=== PATIENT | male | born 1955 | race Caucasian/White ===

== ENCOUNTER 2017-03-01 18:31 | Emergency (ER) | payer MEDICAID ==
[~2017-03-01] VITALS: Ht 175.3 cm; Wt 83.0 kg
[2017-03-01] MEDS ORDERED: HYDROCODONE/ACETAMINOPHEN 5/325MG TABLET PO ONE (23:30)
[2017-03-01 23:48] LABS: HEMATOCRIT. 31.2 % (42.0-52.0); HEMOGLOBIN. 10.3 g/dL (14.0-18.0); MEAN CORPUSCULAR HEMOGLOBIN 28.2 pg (28.0-32.0); MEAN CORPUSCULAR VOLUME 85.5 fL (80.0-94.0); PLATELET 244 x1000/uL (130-400); RED BLOOD CELL COUNT 3.65 mill/uL (4.7-6.1); RED CELL DISTRIBUTION WIDTH 14.8 % (11.6-14.6)
[2017-03-02 00:50] LABS: PLATELET ESTIMATE NORMAL
[2017-03-02] MEDS ORDERED: KETOROLAC 60MG/2ML VIAL IM ONE (04:45)
[2017-03-02 05:27] VITALS: BP 193/102
== END 2017-03-02 05:28 | disposition home or self-care (01) ==
LOC: ER 18:31
DX: M25.531 Pain in right wrist (principal); M25.532 Pain in left wrist; I12.0 Hypertensive chronic kidney disease with stage 5 chronic kidney disease or end stage renal disease; E11.22 Type 2 diabetes mellitus with diabetic chronic kidney disease; N18.6 End stage renal disease; Z99.2 Dependence on renal dialysis
CPT/HCPCS: 36415; 73110; 73130; 80048; 84550; 85025; 96372; 99285; J1885; Z7610

== ENCOUNTER 2017-04-04 09:42 | Emergency (ER) | payer MEDICARE, MEDICAID ==
[~2017-04-04] VITALS: Ht 152.4 cm; Wt 92.0 kg
[2017-04-04 09:43] VITALS: BP 138/86
== END 2017-04-04 10:42 | disposition home or self-care (01) ==
LOC: ER 10:10
DX: Z48.00 Encounter for change or removal of nonsurgical wound dressing (principal); I12.0 Hypertensive chronic kidney disease with stage 5 chronic kidney disease or end stage renal disease; E11.22 Type 2 diabetes mellitus with diabetic chronic kidney disease; N18.6 End stage renal disease; Z99.2 Dependence on renal dialysis; E78.00 Pure hypercholesterolemia, unspecified
CPT/HCPCS: 99283

== ENCOUNTER 2018-06-03 09:38 | Inpatient (IN) | payer MEDICARE, MEDICAID ==
[~2018-06-03] VITALS: Ht 182.9 cm; Wt 101.6 kg
[2018-06-03 11:48] LABS: CHLORIDE 97 mEq/L (98-107)
[2018-06-03 11:49] LABS: BASOPHILS % 0.8 % (0.0-2.0); EOSINOPHILS % 3.6 % (0.0-5.0); HEMATOCRIT. 34.3 % (42.0-52.0); LYMPHOCYTES % 16.8 % (20.0-50.0); MEAN CORPUSCULAR HEMOGLOBIN 31.4 pg (28.0-32.0); MEAN CORPUSCULAR VOLUME 90.1 fL (80.0-94.0); MEAN PLATELET VOLUME 8.5 fl (7.4-10.4); NEUTROPHILS % 70.8 % (40.0-76.0); PLATELET 254 x1000/uL (130-400); RED BLOOD CELL COUNT 3.81 mill/uL (4.7-6.1); RED CELL DISTRIBUTION WIDTH 12.8 % (11.6-14.6)
[2018-06-03 11:52] LABS: INR 1.1; PROTHROMBIN TIME 10.6 sec (9.1-11.1)
[2018-06-03] MEDS ORDERED: IOHEXOL-350 100 ML BOTTLE ONE (15:16)
[2018-06-03] MEDS ORDERED: DEXTROSE 50% WATER 50ML SYRINGE IV PRN (15:30)
[2018-06-03] MEDS ORDERED: ACETAMINOPHEN 325MG TABLET PO PRN (15:30)
[2018-06-03] MEDS ORDERED: ONDANSETRON HCL 4MG/2ML INJ IV PRN (15:30)
[2018-06-03] MEDS: CLONIDINE 0.1MG TABLET PO PRN (18:47)
[2018-06-03] MEDS: INSULIN LISPRO 100 UNITS/ML SUBCUT SCH ×2 (20:00→21:00)
[2018-06-03] MEDS ORDERED: NIFEDIPINE XL 60MG TAB PO NR (20:00)
[2018-06-03] MEDS ORDERED: LOSARTAN POTASSIUM 100 MG TABLET PO NR (20:00)
[2018-06-03] MEDS: BLOOD SUGAR DIAGNOSTIC STRIP TEST SCH ×2 (20:00→21:00)
[2018-06-03 22:00] VITALS: BP 180/98
[2018-06-03 22:20] VITALS: BP 203/106
[2018-06-03] MEDS: NIFEDIPINE XL 60MG TAB PO SCH (22:35)
[2018-06-03] MEDS ORDERED: PREDNISONE 20MG TABLET PO NR (23:00)
[2018-06-04] VITALS: BP 200/100
[2018-06-04] MEDS: VALACYCLOVIR HCL 500MG TABLET PO SCH ×2 (00:53→08:52)
[2018-06-04] MEDS: CLONIDINE 0.1MG TABLET PO PRN (00:53)
[2018-06-04 04:00] VITALS: BP 160/89
[2018-06-04] MEDS: INSULIN LISPRO 100 UNITS/ML SUBCUT SCH ×2 (06:37→13:10)
[2018-06-04] MEDS: BLOOD SUGAR DIAGNOSTIC STRIP TEST SCH ×2 (06:37→12:40)
[2018-06-04 07:21] LABS: BASOPHILS % 1.1 % (0.0-2.0); EOSINOPHILS % 4.9 % (0.0-5.0); HEMATOCRIT. 30.1 % (42.0-52.0); HEMOGLOBIN. 10.5 g/dL (14.0-18.0); LYMPHOCYTES % 21.1 % (20.0-50.0); MEAN CORPUSCULAR HEMOGLOBIN 31.3 pg (28.0-32.0); MEAN CORPUSCULAR VOLUME 89.4 fL (80.0-94.0); MEAN PLATELET VOLUME 8.3 fl (7.4-10.4); MONOCYTES % 8.7 % (2.0-8.0); NEUTROPHILS % 64.2 % (40.0-76.0); PLATELET 233 x1000/uL (130-400); RED BLOOD CELL COUNT 3.37 mill/uL (4.7-6.1); RED CELL DISTRIBUTION WIDTH 12.9 % (11.6-14.6)
[2018-06-04 08:00] VITALS: BP 184/94
[2018-06-04] MEDS: NIFEDIPINE XL 60MG TAB PO SCH (08:51)
[2018-06-04] MEDS ORDERED: LOSARTAN POTASSIUM 100 MG TABLET PO SCH (09:00)
[2018-06-04] MEDS ORDERED: ENOXAPARIN 30MG/0.3ML SYR SUBCUT SCH (09:00)
[2018-06-04] MEDS ORDERED: ASPIRIN 81MG TABLET PO SCH (09:00)
[2018-06-04 12:00] VITALS: BP 117/67
[2018-06-04] MEDS ORDERED: POLYVINYL ALCOHOL OPHTH DROPS 15ML BOTHEYE SCH (12:00)
[2018-06-04] MEDS ORDERED: PREDNISONE 20MG TABLET PO NR (12:30)
[2018-06-04] MEDS ORDERED: CLONIDINE 0.1MG TABLET PO SCH (14:00)
[2018-06-04] MEDS ORDERED: HYDRALAZINE HCL 100MG TABLET PO SCH (14:00)
[2018-06-04 16:33] VITALS: BP 125/71
[2018-06-05] MEDS ORDERED: ENOXAPARIN 40MG/0.4ML SYR SUBCUT SCH (09:00)
== END 2018-06-04 17:15 | disposition home or self-care (01) | DRG 73 ==
LOC: ER 09:38 → 7WST 12:55 → ENRESERV 19:52
PROVIDERS: ADMIT Internal Medicine; ATTEND Internal Medicine
PROC: 5A1D70Z Performance of Urinary Filtration, Intermittent, Less than 6 Hours Per Day (ICD-10-PCS; principal; 2018-06-04)
DX: G51.0 Bell's palsy (principal); N18.6 End stage renal disease; I12.0 Hypertensive chronic kidney disease with stage 5 chronic kidney disease or end stage renal disease; D63.8 Anemia in other chronic diseases classified elsewhere; E11.22 Type 2 diabetes mellitus with diabetic chronic kidney disease; E78.5 Hyperlipidemia, unspecified; E66.9 Obesity, unspecified; E78.1 Pure hyperglyceridemia; E87.8 Other disorders of electrolyte and fluid balance, not elsewhere classified; E78.00 Pure hypercholesterolemia, unspecified; Z99.2 Dependence on renal dialysis; Z68.30 Body mass index [BMI] 30.0-30.9, adult
CPT/HCPCS: 36415; 70496; 70551; 80061; 82962; 84443; 92610; 93005; 96374; 97162; 99285; J1650; J2405; J7512; Q9967

== ENCOUNTER 2018-06-05 15:15 | Emergency (ER) | payer MEDICARE, MEDICAID ==
[~2018-06-05] VITALS: Ht 182.9 cm; Wt 101.7 kg
[2018-06-05] MEDS ORDERED: SODIUM CHLORIDE 0.9% 1,000 ML IV ONE (15:55)
[2018-06-05 16:36] LABS: BASOPHILS % 0.7 % (0.0-2.0); EOSINOPHILS % 1.8 % (0.0-5.0); HEMATOCRIT. 31.6 % (42.0-52.0); HEMOGLOBIN. 11.2 g/dL (14.0-18.0); LYMPHOCYTES % 8.6 % (20.0-50.0); MEAN CORPUSCULAR HEMOGLOBIN 31.5 pg (28.0-32.0); MEAN CORPUSCULAR VOLUME 89.1 fL (80.0-94.0); MEAN PLATELET VOLUME 8.4 fl (7.4-10.4); MONOCYTES % 2.6 % (2.0-8.0); NEUTROPHILS % 86.3 % (40.0-76.0); PLATELET 254 x1000/uL (130-400); RED BLOOD CELL COUNT 3.55 mill/uL (4.7-6.1); RED CELL DISTRIBUTION WIDTH 12.9 % (11.6-14.6)
[2018-06-05 16:38] LABS: CHLORIDE 100 mEq/L (98-107)
[2018-06-05 16:42] LABS: INR 1.1; PROTHROMBIN TIME 10.6 sec (9.1-11.1)
[2018-06-05 16:48] LABS: ETHANOL BLOOD < 10 mg/dL
[2018-06-05 16:50] LABS: CREATINE KINASE 194 IU/L (39-308)
[2018-06-05 21:26] VITALS: BP 144/81
== END 2018-06-05 21:30 | disposition home or self-care (01) ==
LOC: ER 15:15 → CANBEDREQ 23:10
DX: G51.0 Bell's palsy (principal); I10 Essential (primary) hypertension; E11.9 Type 2 diabetes mellitus without complications
CPT/HCPCS: 36415; 70450; 70551; 71045; 80053; 82550; 82962; 83690; 83735; 83880; 85025; 85610; 93005; 99284; G0482; J7030

== ENCOUNTER 2018-10-12 16:35 | Inpatient (IN) | payer MEDICARE, MEDICAID ==
[~2018-10-12] VITALS: Ht 172.7 cm; Wt 101.6 kg
[2018-10-12 17:45] LABS: BASOPHILS % 0.5 % (0.0-2.0); EOSINOPHILS % 1.9 % (0.0-5.0); HEMATOCRIT. 31.9 % (42.0-52.0); HEMOGLOBIN. 11.2 g/dL (14.0-18.0); LYMPHOCYTES % 10.7 % (20.0-50.0); MEAN CORPUSCULAR HEMOGLOBIN 31.1 pg (28.0-32.0); MEAN CORPUSCULAR VOLUME 88.6 fL (80.0-94.0); MONOCYTES % 4.8 % (2.0-8.0); NEUTROPHILS % 82.1 % (40.0-76.0); PLATELET 262 x1000/uL (130-400); RED BLOOD CELL COUNT 3.59 mill/uL (4.7-6.1); RED CELL DISTRIBUTION WIDTH 13.8 % (11.6-14.6)
[2018-10-12 17:47] LABS: CHLORIDE 97 mEq/L (98-107)
[2018-10-12] MEDS ORDERED: HYDRALAZINE 20MG/ML VIAL IV ONE (18:00)
[2018-10-12 22:00] VITALS: BP 168/94
[2018-10-13] VITALS: BP 138/69
[2018-10-13] MEDS ORDERED: ACETAMINOPHEN 325MG TABLET PO PRN (00:15)
[2018-10-13 04:00] VITALS: BP 156/73
[2018-10-13] MEDS ORDERED: HYDRALAZINE HCL 50MG TABLET PO SCH ×2 (06:00→22:00)
[2018-10-13 08:00] VITALS: BP 123/58
[2018-10-13 08:11] LABS: BASOPHILS % 0.7 % (0.0-2.0); EOSINOPHILS % 1.6 % (0.0-5.0); HEMATOCRIT. 31.8 % (42.0-52.0); HEMOGLOBIN. 10.9 g/dL (14.0-18.0); LYMPHOCYTES % 13.3 % (20.0-50.0); MEAN CORPUSCULAR HEMOGLOBIN 30.5 pg (28.0-32.0); MEAN CORPUSCULAR VOLUME 89.1 fL (80.0-94.0); MEAN PLATELET VOLUME 8.4 fl (7.4-10.4); MONOCYTES % 6.2 % (2.0-8.0); NEUTROPHILS % 78.2 % (40.0-76.0); PLATELET 250 x1000/uL (130-400); RED BLOOD CELL COUNT 3.57 mill/uL (4.7-6.1); RED CELL DISTRIBUTION WIDTH 13.9 % (11.6-14.6)
[2018-10-13] MEDS ORDERED: AMLODIPINE 10MG TABLET PO SCH (09:00)
[2018-10-13] MEDS ORDERED: DEXTROSE 50% WATER 50ML SYRINGE IV PRN (10:00)
[2018-10-13 12:00] VITALS: BP 135/68
[2018-10-13] MEDS: BLOOD SUGAR DIAGNOSTIC STRIP TEST SCH ×2 (12:29→17:41)
[2018-10-13] MEDS: INSULIN LISPRO 100 UNITS/ML SUBCUT SCH ×2 (12:59→17:43)
[2018-10-13] MEDS ORDERED: MECLIZINE 25MG TABLET PO PRN (13:00)
[2018-10-13 13:25] LABS: INR 1.1; PROTHROMBIN TIME 11.1 sec (9.6-11.0)
[2018-10-13] MEDS ORDERED: HYDRALAZINE HCL 25MG TABLET PO SCH (14:00)
[2018-10-13 16:00] VITALS: BP_SYST 116; BP_SYST 136; BP_SYST 153; BP_DIAS 66; BP_DIAS 70; BP_DIAS 79
[2018-10-13 16:14] LABS: *AMPHETAMINES SCREEN URINE NEGATIVE (NEGATIVE); *BARBITURATES SCREEN URINE NEGATIVE (NEGATIVE); *BENZODIAZEPINES SCREEN URINE NEGATIVE (NEGATIVE); *COCAINE SCREEN URINE NEGATIVE (NEGATIVE); METHADONE URINE SCREEN NEGATIVE (NEGATIVE); OPIATES URINE SCREEN NEGATIVE (NEGATIVE)
[2018-10-13 16:15] LABS: CANNABINOID URINE SCREEN NEGATIVE (NEGATIVE); PHENCYCLIDINE URINE SCREEN NEGATIVE (NEGATIVE)
[2018-10-13] MEDS ORDERED: SODIUM CHLORIDE 0.9% 250 ML IV ONE (17:45)
[2018-10-13] MEDS ORDERED: LISI-604 MT (18:22)
[2018-10-13] MEDS ORDERED: CALC667C MT (18:22)
[2018-10-13] MEDS ORDERED: HYDR-4001 PO (18:22)
[2018-10-13] MEDS ORDERED: IBUP-2030 MT (18:22)
[2018-10-13] MEDS ORDERED: HYDR100T26 MT (18:22)
[2018-10-13] MEDS ORDERED: SEVE800T8 MT (18:22)
[2018-10-13] MEDS ORDERED: AMLO5TAB88 MT (18:22)
[2018-10-13 18:25] VITALS: BP 136/70
[2018-10-14] MEDS ORDERED: ENOXAPARIN 40MG/0.4ML SYR SUBCUT SCH (09:00)
== END 2018-10-13 20:18 | disposition home or self-care (01) | DRG 73 ==
LOC: ER 16:35 → 6WST 18:34 → EDBEDREQ 18:40 → ENRESERV 20:35
PROVIDERS: ADMIT Internal Medicine; ATTEND Internal Medicine
DX: G90.8 Other disorders of autonomic nervous system (principal); N18.6 End stage renal disease; I16.1 Hypertensive emergency; I12.0 Hypertensive chronic kidney disease with stage 5 chronic kidney disease or end stage renal disease; I31.3 Pericardial effusion (noninflammatory); G51.0 Bell's palsy; E11.22 Type 2 diabetes mellitus with diabetic chronic kidney disease; D64.9 Anemia, unspecified; Z79.899 Other long term (current) drug therapy; Z99.2 Dependence on renal dialysis
CPT/HCPCS: 36415; 71045; 80048; 80305; 82962; 84484; 93306; 96374; 99285; J0360; J1815

== ENCOUNTER 2020-09-02 09:28 | Emergency (ER) | payer MEDICARE, MEDICAID ==
[~2020-09-02] VITALS: Ht 162.6 cm; Wt 82.0 kg
[~2020-09-02 09:28] MED LIST: CALC667C MT; HYDR-4001 PO; HYDR100T26 MT; IBUP-2030 MT; LISI20TA31 MT; SEVE800T8 MT
[2020-09-02 10:12] LABS: BASOPHILS % 1.2 % (0.0-2.0); EOSINOPHILS % 3.5 % (0.0-5.0); HEMATOCRIT. 37.2 % (42.0-52.0); HEMOGLOBIN. 12.2 g/dL (14.0-18.0); LYMPHOCYTES % 7.7 % (20.0-50.0); MEAN CORPUSCULAR HEMOGLOBIN 30.4 pg (28.0-32.0); MEAN CORPUSCULAR VOLUME 92.4 fL (80.0-94.0); MEAN PLATELET VOLUME 8.1 fl (7.4-10.4); MONOCYTES % 13.3 % (2.0-8.0); NEUTROPHILS % 74.3 % (40.0-76.0); PLATELET 151 x1000/uL (130-400); RED BLOOD CELL COUNT 4.03 mill/uL (4.7-6.1); RED CELL DISTRIBUTION WIDTH 17.2 % (11.6-14.6)
[2020-09-02 10:18] LABS: CHLORIDE 95 mEq/L (98-107)
[2020-09-02] MEDS ORDERED: ACETAMINOPHEN 325MG TABLET PO ONE (15:45)
[2020-09-02] MEDS ORDERED: ONDANSETRON HCL 4MG/2ML INJ IV ONE (17:00)
[2020-09-02 18:12] VITALS: BP 167/89
== END 2020-09-02 18:24 | disposition short-term general hospital (02) ==
LOC: ER 09:36 → CANBEDREQ 20:42
DX: R07.89 Other chest pain (principal)
CPT/HCPCS: 36415; 71045; 80053; 82962; 83880; 84484; 85025; 93005; 96374; 99285; J2405

== ENCOUNTER 2020-11-11 14:42 | Inpatient (IN) | payer MEDICARE, MEDICAID ==
[2020-11-11] VITALS: BP 172/88
[~2020-11-11] VITALS: Ht 170.2 cm; Wt 82.1 kg
[2020-11-11] MEDS ORDERED: HYDROCODONE/ACETAMINOPHEN 5/325MG TABLET PO ONE (15:15)
[2020-11-11 17:17] LABS: HEMATOCRIT. 30.8 % (42.0-52.0); HEMOGLOBIN. 10.9 g/dL (14.0-18.0); MEAN CORPUSCULAR VOLUME 93.8 fL (80.0-94.0); MEAN PLATELET VOLUME 7.5 fl (7.4-10.4); PLATELET 218 x1000/uL (130-400); RED BLOOD CELL COUNT 3.29 mill/uL (4.7-6.1)
[2020-11-11 17:24] LABS: CHLORIDE 95 mEq/L (98-107)
[2020-11-11 17:38] LABS: PLATELET ESTIMATE NORMAL
[2020-11-11] MEDS ORDERED: CLONIDINE 0.1MG TABLET PO PRN (22:30)
[2020-11-11] MEDS ORDERED: ACETAMINOPHEN 325MG TABLET PO PRN (22:30)
[2020-11-11] MEDS ORDERED: ONDANSETRON HCL 4MG/2ML INJ IV PRN (22:30)
[2020-11-11 23:00] VITALS: BP 162/92
[2020-11-11] MEDS: MORPHINE SULFATE 2 MG/ML CPJ (NOT FOR IM USE) IV PRN (23:17)
[2020-11-12] MEDS ORDERED: DEXTROSE 50% WATER 50ML SYRINGE IV PRN ×2 (00:30)
[2020-11-12 04:00] VITALS: BP 162/76
[2020-11-12] MEDS: MORPHINE SULFATE 2 MG/ML CPJ (NOT FOR IM USE) IV PRN ×3 (04:26→14:39)
[2020-11-12 06:23] LABS: HEMATOCRIT. 30.7 % (42.0-52.0); HEMOGLOBIN. 10.7 g/dL (14.0-18.0); MEAN CORPUSCULAR HEMOGLOBIN 33.4 pg (28.0-32.0); MEAN CORPUSCULAR VOLUME 95.8 fL (80.0-94.0); MEAN PLATELET VOLUME 8.6 fl (7.4-10.4); PLATELET 194 x1000/uL (130-400); RED CELL DISTRIBUTION WIDTH 13.6 % (11.6-14.6)
[2020-11-12 06:31] LABS: CHLORIDE 94 mEq/L (98-107)
[2020-11-12 06:51] LABS: LDL CHOLESTEROL 73 mg/dL (5-100)
[2020-11-12 06:53] LABS: HDL CHOLESTEROL 24 mg/dL (40-59)
[2020-11-12] MEDS: HYDRALAZINE HCL 100MG TABLET PO SCH ×3 (06:55→21:29)
[2020-11-12] MEDS: BLOOD SUGAR DIAGNOSTIC STRIP TEST SCH ×4 (07:03→21:30)
[2020-11-12] MEDS: INSULIN LISPRO 100 UNITS/ML SUBCUT SCH ×4 (07:03→21:00)
[2020-11-12] MEDS ORDERED: BLOOD SUGAR DIAGNOSTIC STRIP TEST SCH (07:20)
[2020-11-12] MEDS ORDERED: INSULIN LISPRO 100 UNITS/ML SUBCUT SCH (07:50)
[2020-11-12 08:12] VITALS: BP 141/72
[2020-11-12] MEDS: ENOXAPARIN 30MG/0.3ML SYR SUBCUT SCH (10:00)
[2020-11-12] MEDS: FOLIC ACID/VITAMIN B COMP W-C TABLET PO SCH (10:01)
[2020-11-12] MEDS: LISINOPRIL 20MG TABLET PO SCH (10:01)
[2020-11-12] MEDS: SEVELAMER CARBONATE 800 MG TABLET PO SCH ×3 (10:05→18:19)
[2020-11-12 12:10] VITALS: BP 125/69
[2020-11-12 13:14] LABS: HEPATITIS B SURFACE ANTIGEN NEGATIVE
[2020-11-12 13:44] LABS: HEPATITIS A AB IGM NEGATIVE (NEGATIVE)
[2020-11-12 16:04] VITALS: BP 120/65
[2020-11-12 16:36] LABS: PLATELET ESTIMATE NORMAL
[2020-11-12 20:00] VITALS: BP 150/77
[2020-11-12] MEDS: HYDROCODONE/ACETAMINOPHEN 5/325MG TABLET PO PRN (21:30)
[2020-11-13] VITALS: BP 94/57
[2020-11-13 04:00] VITALS: BP_SYST 136; BP_SYST 94; BP_DIAS 48; BP_DIAS 70
[2020-11-13] MEDS: MORPHINE SULFATE 2 MG/ML CPJ (NOT FOR IM USE) IV PRN ×2 (05:00→13:09)
[2020-11-13] MEDS: HYDRALAZINE HCL 100MG TABLET PO SCH ×3 (05:04→21:07)
[2020-11-13 06:49] LABS: HEMATOCRIT. 32.5 % (42.0-52.0); HEMOGLOBIN. 10.8 g/dL (14.0-18.0); MEAN CORPUSCULAR HEMOGLOBIN 32.4 pg (28.0-32.0); MEAN CORPUSCULAR VOLUME 97.2 fL (80.0-94.0); MEAN PLATELET VOLUME 8.4 fl (7.4-10.4); PLATELET 225 x1000/uL (130-400); RED BLOOD CELL COUNT 3.34 mill/uL (4.7-6.1); RED CELL DISTRIBUTION WIDTH 13.6 % (11.6-14.6)
[2020-11-13] MEDS: BLOOD SUGAR DIAGNOSTIC STRIP TEST SCH ×4 (07:20→20:32)
[2020-11-13] MEDS: INSULIN LISPRO 100 UNITS/ML SUBCUT SCH ×4 (07:50→20:32)
[2020-11-13 08:04] VITALS: BP 118/71
[2020-11-13] MEDS: COLCHICINE 0.6MG TABLET PO SCH ×2 (09:00→09:17)
[2020-11-13] MEDS ORDERED: VANCOMYCIN 1 G PREMIX 200 ML IV SCH (09:00)
[2020-11-13] MEDS: FOLIC ACID/VITAMIN B COMP W-C TABLET PO SCH (09:16)
[2020-11-13] MEDS: SEVELAMER CARBONATE 800 MG TABLET PO SCH ×3 (09:16→17:36)
[2020-11-13] MEDS: LISINOPRIL 20MG TABLET PO SCH (09:18)
[2020-11-13] MEDS: ENOXAPARIN 30MG/0.3ML SYR SUBCUT SCH (09:19)
[2020-11-13] MEDS ORDERED: COLCHICINE 0.6MG TABLET PO SCH ×2 (10:00→13:00)
[2020-11-13] MEDS ORDERED: VANCOMYCIN 1,500 MG in DEXT 5% WATER 250 ML IV SCH (11:00)
[2020-11-13 12:07] VITALS: BP 101/59
[2020-11-13 16:06] VITALS: BP 140/80
[2020-11-13 20:00] VITALS: BP 147/74
[2020-11-13 23:22] LABS: PLATELET ESTIMATE NORMAL
[2020-11-14] VITALS (7 sets, daily range): BP systolic 112–155; BP diastolic 55–81
[2020-11-14] MEDS: MORPHINE SULFATE 2 MG/ML CPJ (NOT FOR IM USE) IV PRN ×3 (03:30→17:32)
[2020-11-14] MEDS: HYDRALAZINE HCL 100MG TABLET PO SCH ×2 (05:45→14:00)
[2020-11-14] MEDS: HYDROCODONE/ACETAMINOPHEN 5/325MG TABLET PO PRN ×3 (05:46→20:47)
[2020-11-14] MEDS: BLOOD SUGAR DIAGNOSTIC STRIP TEST SCH ×4 (06:23→20:19)
[2020-11-14 07:32] LABS: HEMATOCRIT. 31.5 % (42.0-52.0); MEAN CORPUSCULAR VOLUME 94.9 fL (80.0-94.0); MEAN PLATELET VOLUME 8.3 fl (7.4-10.4); PLATELET 235 x1000/uL (130-400); RED BLOOD CELL COUNT 3.32 mill/uL (4.7-6.1); RED CELL DISTRIBUTION WIDTH 13.7 % (11.6-14.6)
[2020-11-14] MEDS: INSULIN LISPRO 100 UNITS/ML SUBCUT SCH ×4 (07:40→20:19)
[2020-11-14] MEDS: FOLIC ACID/VITAMIN B COMP W-C TABLET PO SCH (08:31)
[2020-11-14] MEDS: ENOXAPARIN 30MG/0.3ML SYR SUBCUT SCH (08:34)
[2020-11-14] MEDS: LISINOPRIL 20MG TABLET PO SCH (08:40)
[2020-11-14] MEDS: SEVELAMER CARBONATE 800 MG TABLET PO SCH ×3 (08:40→17:32)
[2020-11-14] MEDS ORDERED: COLCHICINE 0.6MG TABLET PO SCH (09:00)
[2020-11-14 14:59] LABS: PLATELET ESTIMATE NORMAL
[2020-11-14] MEDS ORDERED: VANCOMYCIN 750 MG PREMIX 150 ML IV SCH (15:00)
== END 2020-11-14 22:00 | disposition home or self-care (01) | DRG 553 ==
LOC: ER 14:42 → 6WST 19:13 → EDBEDREQ 19:14 → ENRESERV 20:51
PROVIDERS: ADMIT Internal Medicine; ATTEND Internal Medicine
DX: M10.9 Gout, unspecified (principal); N18.6 End stage renal disease; I12.0 Hypertensive chronic kidney disease with stage 5 chronic kidney disease or end stage renal disease; M19.90 Unspecified osteoarthritis, unspecified site; E11.22 Type 2 diabetes mellitus with diabetic chronic kidney disease; D64.9 Anemia, unspecified; M54.9 Dorsalgia, unspecified; E87.70 Fluid overload, unspecified; M19.019 Primary osteoarthritis, unspecified shoulder; Z99.2 Dependence on renal dialysis
CPT/HCPCS: 36415; 71045; 73030; 73110; 73130; 73200; 80048; 80053; 80061; 80202; 82962; 83036; 83880; 84100; 84484; 84550; 85025; 85651; 86140; 86705; 86709; 86803; 87340; 93005; 93970; 93971; 99285; J1650; J2270; J2405; J3370; J7060

== ENCOUNTER 2020-11-18 09:19 | Inpatient (IN) | payer MEDICARE, MEDICAID ==
[~2020-11-18] VITALS: Ht 167.6 cm; Wt 81.4 kg
[2020-11-18 10:00] LABS: HEMATOCRIT. 34.1 % (42.0-52.0); HEMOGLOBIN. 11.6 g/dL (14.0-18.0); MEAN CORPUSCULAR HEMOGLOBIN 32.8 pg (28.0-32.0); MEAN PLATELET VOLUME 7.7 fl (7.4-10.4); PLATELET 247 x1000/uL (130-400); RED BLOOD CELL COUNT 3.55 mill/uL (4.7-6.1); RED CELL DISTRIBUTION WIDTH 13.4 % (11.6-14.6)
[2020-11-18 10:07] LABS: CHLORIDE 92 mEq/L (98-107)
[2020-11-18 10:11] LABS: ETHANOL BLOOD < 10 mg/dL
[2020-11-18 10:24] LABS: INR 1.1
[2020-11-18] MEDS ORDERED: NICARDIPINE 40MG/200ML PREMIX 200 ML IV PRN (11:15)
[2020-11-18 11:42] LABS: PLATELET ESTIMATE NORMAL
[2020-11-18 11:53] LABS: HEPATITIS B SURFACE ANTIGEN NEGATIVE
[2020-11-18 12:23] LABS: HEPATITIS A AB IGM NEGATIVE (NEGATIVE)
[2020-11-18] MEDS ORDERED: ACETAMINOPHEN 325MG TABLET PO ONE (14:15)
[2020-11-18 16:38] VITALS: BP 122/67
[2020-11-18] MEDS ORDERED: DEXTROSE 50% WATER 50ML SYRINGE IV PRN (17:45)
[2020-11-18] MEDS: HYDROCODONE/ACETAMINOPHEN 5/325MG TABLET PO PRN ×2 (18:14→22:31)
[2020-11-18 20:00] VITALS: BP 129/70
[2020-11-18] MEDS: INSULIN LISPRO 100 UNITS/ML SUBCUT SCH (21:00)
[2020-11-18] MEDS: BLOOD SUGAR DIAGNOSTIC STRIP TEST SCH (21:05)
[2020-11-19] VITALS: BP 159/80
[2020-11-19 04:00] VITALS: BP 159/82
[2020-11-19] MEDS: HYDROCODONE/ACETAMINOPHEN 5/325MG TABLET PO PRN ×3 (04:22→23:08)
[2020-11-19] MEDS: BLOOD SUGAR DIAGNOSTIC STRIP TEST SCH ×4 (06:20→21:15)
[2020-11-19] MEDS: INSULIN LISPRO 100 UNITS/ML SUBCUT SCH ×4 (06:20→21:00)
[2020-11-19 06:28] LABS: HEMATOCRIT. 32.5 % (42.0-52.0); HEMOGLOBIN. 11.1 g/dL (14.0-18.0); MEAN CORPUSCULAR HEMOGLOBIN 32.5 pg (28.0-32.0); MEAN CORPUSCULAR VOLUME 95.5 fL (80.0-94.0); MEAN PLATELET VOLUME 8.4 fl (7.4-10.4); PLATELET 246 x1000/uL (130-400); RED BLOOD CELL COUNT 3.41 mill/uL (4.7-6.1); RED CELL DISTRIBUTION WIDTH 13.5 % (11.6-14.6)
[2020-11-19 08:00] VITALS: BP 128/73
[2020-11-19 12:00] VITALS: BP 140/82
[2020-11-19 15:19] LABS: PLATELET ESTIMATE NORMAL
[2020-11-19 16:00] VITALS: BP 156/75
[2020-11-19 19:19] LABS: T4 FREE 1.11 ng/dL (0.76-1.46)
[2020-11-19 20:00] VITALS: BP 168/85
[2020-11-20] VITALS: BP_SYST 136; BP_SYST 99; BP_DIAS 61; BP_DIAS 69
[2020-11-20] MEDS: HYDROCODONE/ACETAMINOPHEN 5/325MG TABLET PO PRN ×3 (03:24→18:03)
[2020-11-20 04:00] VITALS: BP 143/85
[2020-11-20] MEDS: BLOOD SUGAR DIAGNOSTIC STRIP TEST SCH ×4 (06:16→21:10)
[2020-11-20] MEDS: INSULIN LISPRO 100 UNITS/ML SUBCUT SCH ×4 (06:17→21:16)
[2020-11-20 07:12] LABS: HEMATOCRIT. 31.9 % (42.0-52.0); MEAN PLATELET VOLUME 8.7 fl (7.4-10.4); PLATELET 231 x1000/uL (130-400); RED BLOOD CELL COUNT 3.33 mill/uL (4.7-6.1); RED CELL DISTRIBUTION WIDTH 13.5 % (11.6-14.6)
[2020-11-20 08:00] VITALS: BP 144/87
[2020-11-20 09:10] LABS: A/G RATIO 0.6 (0.7-1.7); ALBUMIN 2.4 g/dL (2.9-4.4); ALPHA-1-GLOBULIN 0.3 g/dL (0.0-0.4); ALPHA-2-GLOBULIN 0.7 g/dL (0.4-1.0); BETA GLOBULIN 0.8 g/dL (0.7-1.3); GLOBULIN TOTAL 3.7 g/dL (2.2-3.9); M-SPIKE Not Observed g/dL (Not Observed); TOTAL PROTEIN SERUM 6.1 g/dL (6.0-8.5)
[2020-11-20 12:00] VITALS: BP 160/85
[2020-11-20 13:59] LABS: PLATELET ESTIMATE NORMAL
[2020-11-20 16:00] VITALS: BP 106/68
[2020-11-20] MEDS ORDERED: COLCHICINE 0.6MG TABLET PO SCH (17:00)
[2020-11-20] MEDS ORDERED: COLCHICINE 0.6MG TABLET PO NR (17:00)
[2020-11-20] MEDS ORDERED: LACTULOSE 20G/30ML UDC PO PRN (17:30)
[2020-11-20] MEDS: MELOXICAM 7.5MG TABLET PO SCH (18:01)
[2020-11-20] MEDS: COLCHICINE 0.6MG TABLET PO SCH (18:02)
[2020-11-20 20:00] VITALS: BP 147/79
[2020-11-21] VITALS: BP 153/78
[2020-11-21 04:00] VITALS: BP 98/59
[2020-11-21] MEDS: INSULIN LISPRO 100 UNITS/ML SUBCUT SCH ×4 (06:39→21:00)
[2020-11-21] MEDS: BLOOD SUGAR DIAGNOSTIC STRIP TEST SCH ×4 (06:39→21:00)
[2020-11-21 08:00] VITALS: BP 128/73
[2020-11-21] MEDS: MELOXICAM 7.5MG TABLET PO SCH (09:06)
[2020-11-21 10:08] LABS: HEMATOCRIT. 33.4 % (42.0-52.0); HEMOGLOBIN. 11.4 g/dL (14.0-18.0); MEAN CORPUSCULAR HEMOGLOBIN 32.9 pg (28.0-32.0); MEAN CORPUSCULAR VOLUME 96.5 fL (80.0-94.0); MEAN PLATELET VOLUME 8.1 fl (7.4-10.4); PLATELET 219 x1000/uL (130-400); RED BLOOD CELL COUNT 3.46 mill/uL (4.7-6.1); RED CELL DISTRIBUTION WIDTH 13.6 % (11.6-14.6)
[2020-11-21 12:00] VITALS: BP 122/69
[2020-11-21 12:45] LABS: INR 1.1; PROTHROMBIN TIME 12.1 sec (9.6-11.0)
[2020-11-21 15:48] LABS: PLATELET ESTIMATE NORMAL
[2020-11-21 16:00] VITALS: BP 119/70
[2020-11-21 20:00] VITALS: BP 169/87
[2020-11-22 04:00] VITALS: BP 165/86
[2020-11-22] MEDS: BLOOD SUGAR DIAGNOSTIC STRIP TEST SCH ×4 (06:04→21:00)
[2020-11-22] MEDS: INSULIN LISPRO 100 UNITS/ML SUBCUT SCH ×4 (06:34→21:00)
[2020-11-22 06:42] LABS: HEMATOCRIT. 32.7 % (42.0-52.0); HEMOGLOBIN. 11.2 g/dL (14.0-18.0); MEAN CORPUSCULAR HEMOGLOBIN 32.9 pg (28.0-32.0); MEAN CORPUSCULAR VOLUME 96.4 fL (80.0-94.0); MEAN PLATELET VOLUME 8.3 fl (7.4-10.4); PLATELET 201 x1000/uL (130-400); RED BLOOD CELL COUNT 3.39 mill/uL (4.7-6.1); RED CELL DISTRIBUTION WIDTH 13.6 % (11.6-14.6)
[2020-11-22 08:00] VITALS: BP 165/86
[2020-11-22] MEDS ORDERED: SODIUM BICARBONATE 4% (2.4MEQ) 5ML VIAL IV ONE (10:34)
[2020-11-22] MEDS ORDERED: LIDOCAINE HCL 1% 20ML VIAL (Pyxis) INJ ONE (10:34)
[2020-11-22 15:06] LABS: PLATELET ESTIMATE NORMAL
[2020-11-22 16:00] VITALS: BP 170/79
[2020-11-22 20:00] VITALS: BP 179/91
[2020-11-22] MEDS: AMLODIPINE 10MG TABLET PO SCH (23:30)
[2020-11-23] VITALS: BP 144/70
[2020-11-23 04:00] VITALS: BP 154/73
[2020-11-23] MEDS: HYDROCODONE/ACETAMINOPHEN 5/325MG TABLET PO PRN ×3 (04:25→22:25)
[2020-11-23] MEDS: BLOOD SUGAR DIAGNOSTIC STRIP TEST SCH ×4 (06:17→20:54)
[2020-11-23] MEDS: INSULIN LISPRO 100 UNITS/ML SUBCUT SCH ×4 (06:30→20:54)
[2020-11-23 06:38] LABS: HEMATOCRIT. 33.2 % (42.0-52.0); HEMOGLOBIN. 11.2 g/dL (14.0-18.0); MEAN CORPUSCULAR VOLUME 95.1 fL (80.0-94.0); MEAN PLATELET VOLUME 8.2 fl (7.4-10.4); PLATELET 206 x1000/uL (130-400); RED CELL DISTRIBUTION WIDTH 13.6 % (11.6-14.6)
[2020-11-23 08:00] VITALS: BP 99/56
[2020-11-23] MEDS: COLCHICINE 0.6MG TABLET PO SCH (08:55)
[2020-11-23] MEDS: AMLODIPINE 10MG TABLET PO SCH (08:57)
[2020-11-23 11:46] LABS: PLATELET ESTIMATE NORMAL
[2020-11-23 12:00] VITALS: BP 150/78
[2020-11-23 16:00] VITALS: BP 174/85
[2020-11-23 20:00] VITALS: BP 115/66
[2020-11-24] VITALS: BP 136/77
[2020-11-24 04:00] VITALS: BP 154/81
[2020-11-24] MEDS: HYDROCODONE/ACETAMINOPHEN 5/325MG TABLET PO PRN ×2 (04:13→12:20)
[2020-11-24 06:11] LABS: BASOPHILS % 2.3 % (0.0-2.0); EOSINOPHILS % 6.6 % (0.0-5.0); HEMATOCRIT. 33.7 % (42.0-52.0); HEMOGLOBIN. 11.2 g/dL (14.0-18.0); LYMPHOCYTES % 9.4 % (20.0-50.0); MEAN CORPUSCULAR VOLUME 96.1 fL (80.0-94.0); MEAN PLATELET VOLUME 8.5 fl (7.4-10.4); MONOCYTES % 12.8 % (2.0-8.0); NEUTROPHILS % 68.9 % (40.0-76.0); PLATELET 154 x1000/uL (130-400); RED BLOOD CELL COUNT 3.51 mill/uL (4.7-6.1); RED CELL DISTRIBUTION WIDTH 13.7 % (11.6-14.6)
[2020-11-24] MEDS: INSULIN LISPRO 100 UNITS/ML SUBCUT SCH ×2 (07:15→12:03)
[2020-11-24 08:00] VITALS: BP 140/78
[2020-11-24] MEDS: AMLODIPINE 10MG TABLET PO SCH (08:23)
[2020-11-24 12:00] VITALS: BP 121/73
[2020-11-24] MEDS: BLOOD SUGAR DIAGNOSTIC STRIP TEST SCH (12:03)
[2020-11-24 12:22] VITALS: BP 121/73
[2020-11-30 13:06] LABS: BARBITURATE SCREEN Negative ug/mL (Cutoff:0.1); BENZODIAZEPINE SCREEN Negative ng/mL (Cutoff:20); OPIATES SCREEN ++POSITIVE++ ng/mL (Cutoff:5); PHENCYCLIDINE SCREEN Negative ng/mL (Cutoff:8)
== END 2020-11-24 14:15 | DRG 91 ==
LOC: ER 09:19 → 5WST 14:13 → ENRESERV 15:08
PROVIDERS: ADMIT Internal Medicine; ATTEND Internal Medicine
PROC: 5A1D70Z Performance of Urinary Filtration, Intermittent, Less than 6 Hours Per Day (ICD-10-PCS; 2020-11-18)
PROC: 5A1D70Z Performance of Urinary Filtration, Intermittent, Less than 6 Hours Per Day (ICD-10-PCS; 2020-11-20)
PROC: 0W9G30Z Drainage of Peritoneal Cavity with Drainage Device, Percutaneous Approach (ICD-10-PCS; 2020-11-22)
PROC: 5A1D80Z Performance of Urinary Filtration, Prolonged Intermittent, 6-18 hours Per Day (ICD-10-PCS; 2020-11-23)
PROC: 4A10X4Z Monitoring of Central Nervous Electrical Activity, External Approach (ICD-10-PCS; principal; 2020-11-24)
DX: G92 Toxic encephalopathy (principal); N18.6 End stage renal disease; R18.8 Other ascites; I12.0 Hypertensive chronic kidney disease with stage 5 chronic kidney disease or end stage renal disease; E11.22 Type 2 diabetes mellitus with diabetic chronic kidney disease; E78.00 Pure hypercholesterolemia, unspecified; E83.52 Hypercalcemia; D64.9 Anemia, unspecified; R26.89 Other abnormalities of gait and mobility; M19.041 Primary osteoarthritis, right hand; M75.101 Unspecified rotator cuff tear or rupture of right shoulder, not specified as traumatic; Z20.822 Contact with and (suspected) exposure to COVID-19; Z99.2 Dependence on renal dialysis; Z79.891 Long term (current) use of opiate analgesic; Z79.899 Other long term (current) drug therapy
CPT/HCPCS: 36415; 49083; 70551; 76700; 80048; 80053; 80307; 80320; 82140; 82607; 82746; 82962; 83036; 83605; 83970; 84155; 84165; 84439; 84443; 84481; 84550; 85025; 86705; 86709; 86803; 87340; 87426; 88108; 88312; 93005; 93971; 97110; 97162; 97166; 97530; 97535; 99291; J3490; G0480